=== PATIENT | male | born 1975 | race Caucasian/White ===

== ENCOUNTER 2020-04-09 00:59 | Emergency (ER) | payer BC ==
[2020-04-09] MEDS ORDERED: Tetracaine HCl 0.5% Ophth Soln 2 ML Bottle ONE (01:26)
[2020-04-09] MEDS ORDERED: diphenhydrAMINE 50 MG/ML VIAL ONE (01:41)
[2020-04-09] MEDS ORDERED: Prochlorperazine 10 MG/2 ML VIAL ONE (01:41)
[2020-04-09] MEDS ORDERED: Ketorolac Tromethamine 30 MG/ML VIAL ONE (01:41)
[2020-04-09] MEDS ORDERED: methylPREDNISolone Sod Succ/PF 125 MG/2 ML VIAL ONE (02:51)
--- NOTE | 2020-04-09 07:35 | CT ---
PRELIMINARY REPORT/[facility]/EMERGENCY AFTER HOURS PROCEDURE: EXAM: CT Head Without Intravenous Contrast. CLINICAL HISTORY: HEADACHE; PAIN TO LEFT SIDE OF HEAD; BLURRED VISION FOR 1 1/2 HOURS. TECHNIQUE: Axial computed tomography images of the head/brain without intravenous contrast. COMPARISON: None provided. FINDINGS: BRAIN: No acute intraparenchymal hemorrhage. No mass lesion. No CT evidence for acute territorial infarct. N o midline shift or extra-axial collection. VENTRICLES: No hydrocephalus. ORBITS: The orbits are unremarkable. SINUSES AND MASTOIDS: The paranasal sinuses and mastoid air cells are clear. SOFT TISSUES: No significant facial or scalp soft tissue swelling evident. No radiopaque foreign body is seen. BONES: No acute skull fracture. IMPRESSION: No acute intracranial abnormality. ELECTRONICALLY SIGNED BY: Bola Beebe M.D. Apr 09, 2020 1:59:17 AM CDT This report is intended for review by the ordering physician only, in accordance of law. If you recei ve this report in error, please call [facility] at [phone]. FINAL REPORT EMERGENCY AFTER HOURS CT BRAIN WITHOUT CONTRAST: FINDINGS/IMPRESSION: I agree with the findings and impression given in the preliminary report per [facility] physici an. No evidence of acute intracranial abnormality. POS: HEBER
--- NOTE | 2020-04-09 08:25 | CT ---
PRELIMINARY REPORT/[facility]/EMERGENCY AFTER HOURS PROCEDURE: EXAM: CTA Head and Neck with Intravenous Contrast. CLINICAL HISTORY: LEFT RETRO ORBITAL HEADACHE TECHNIQUE: Axial CTA images of the head and neck performed with intravenous contrast. Two-dimensional MIP and/or three-dimensional MIP and volume rendered reformations were performed. Note: Per PQ[facility], the description of internal carotid artery percent stenosis, including 0 percent or normal exam, is b ased on [place] Symptomatic Carotid Endarterectomy Trial (NASCET) criteria. CONTRAST: With; ISOVUE [id number] COMPARISON: CT - CT BRAIN WO CON - 04/09/2020 01:37 AM CDT FINDINGS: CTA NECK: COMMON CAROTID ARTERIES No significant stenosis. No dissection or occlusion. INTERNAL CAROTID ARTERIES No stenosis by NASCET criteria. No dissection or occlusion. VERTEBRAL ARTERIES No significant stenosis. No dissection or occlusion. CTA HEAD: ANTERIOR CEREBRAL ARTERIES No significant stenosis. No occlusion. No aneurysm. MIDDLE CEREBRAL ARTERIES No significant stenosis. No occlusion. No aneurysm. POSTERIOR CEREBRAL ARTERIES No significant stenosis. No occlusion. No aneurysm. BASILAR ARTERY No significant stenosis. No occlusion. No aneurysm. OTHER: SOFT TISSUES No acute finding. No masses or lymphadenopathy. BONES No acute osseous abnormality. IMPRESSION: Unremarkable CTA of the head and neck. ELECTRONICALLY SIGNED BY: Bola Beebe M.D. Apr 09, 2020 3:08:20 AM CDT FINAL REPORT EMERGENT AFTER HOURS CT ANGIOGRAM HEAD AND NECK WITH IV CONTRAST AND 3D RECONSTRUCTIONS: HISTORY: Left retroorbital headache. IMPRESSION: 1. Patent bilateral common carotid arteries as well as patent bilateral internal and external carotid arteries. 2. Patent and codominant bilateral vertebral arteries. 3. No focal stenosis or branch occlusion is seen involving the [place] of [place] or vertebrobasilar sy stem. 4. No retro-orbital mass or inflammatory stranding is seen. 5. Findings are in agreement with pulmonary report by [facility]. Transcribed Date/Time: 04/09/2020 8:44 AM
[2020-04-09] MEDS ORDERED: Iopamidol 370 76% 100 ML VIAL ONE (09:00)
== END 2020-04-09 05:10 | disposition home or self-care (01) ==
LOC: NAV ERS 00:59
DX: I44.4 Left anterior fascicular block (principal); H53.8 Other visual disturbances; E78.5 Hyperlipidemia, unspecified; E78.00 Pure hypercholesterolemia, unspecified; F41.9 Anxiety disorder, unspecified; F43.10 Post-traumatic stress disorder, unspecified; Z87.891 Personal history of nicotine dependence
CPT/HCPCS: 70450; 70496; 96374; 96375; J0780; J1200; J1885; J2930; Q9967